=== PATIENT | female | born 1985 | race African-American/Black ===

== ENCOUNTER 2017-01-13 14:40 | Emergency (ER) | payer OTHER ==
[~2017-01-13] VITALS: Ht 165.1 cm; Wt 98.9 kg
[~2017-01-13 14:40] MED LIST: DOXY100T PO; HYDR-2758 PO; HYDR-971 PO; LISI1TAB3 PO; METR500T PO; NITR100C62 PO; OMEP20TA63 PO; ORPH100T PO
[2017-01-13] MEDS ORDERED: ASPIRIN CHEWABLE 81 MG TABLET. PO ONE (15:30)
[2017-01-13 15:36] LABS: BASO # 0.1 x10^3/uL (0.0-0.2); BASO % 1 % (0-3); EOS % 3 % (0-3); HEMATOCRIT 38.5 % (36.0-47.0); HEMOGLOBIN 12.8 g/dL (12.0-15.5); LYMPH # 2.7 x10^3/uL (1.0-4.8); LYMPH % 32 % (24-48); MEAN CORPUSCULAR HEMOGLOBIN 30 pg (25-35); MEAN CORPUSCULAR HGB CONC 33 g/dL (31-37); MEAN CORPUSCULAR VOLUME 91 fL (79-100); MONO % 4 % (0-9); NEUT % 61 % (31-73); PLATELET COUNT 293 x10^3/uL (140-400); RED BLOOD COUNT 4.24 x10^6/uL (3.50-5.40); RED CELL DISTRIBUTION WIDTH 14.6 % (11.5-14.5); WHITE BLOOD COUNT 8.6 x10^3/uL (4.0-11.0)
[2017-01-13 15:44] LABS: ALBUMIN 3.4 g/dL (3.4-5.0); ALBUMIN/GLOBULIN RATIO 0.8 (1.0-1.7); CALCIUM 8.9 mg/dL (8.5-10.1); CREATININE 0.7 mg/dL (0.6-1.0); GFR 116.6; TOTAL BILIRUBIN 0.3 mg/dL (0.2-1.0); TOTAL PROTEIN 7.7 g/dL (6.4-8.2)
[2017-01-13 15:52] LABS: POTASSIUM 2.8 mmol/L (3.5-5.1)
--- NOTE | 2017-01-13 15:53 | PHYS DOC ---
Past Medical History Past Medical History: Hypertension Additional Past Medical Histor: chronic left ankle pain, back pain, treated at pain center Past Surgical History: Tubal ligation, Other Additional Past Surgical Histo: orthopedic l ankle with hardware Alcohol Use: Occasionally Drug Use: Marijuana Adult General Chief Complaint Chief Complaint: CHEST PAIN HPI HPI Patient is a 31 year old F who presents with chest pain that started at 4 AM this morning and progressively gotten worse. Patient states the pain is central nonradiating. Patient has no previous MIs or stents. Patient does take medication for high blood pressure and does smoke. Patient denies any diabetes or any significant family history for heart disease. Patient denies any risk factors for PE/DVT. Patient denies any fevers. Patient denies any nausea/ vomiting/diarrhea. Patient states the chest pain does not increase or decrease with exertion. Pertinent exam findings: Heart was regular rhythm without murmurs Lungs are clear to auscultation bilaterally without crackles wheeze or rales ED course: Patient was seen and examined the cardiac workup was ordered 1625: By mouth potassium replacement was ordered 1726: She was reevaluated and her pain was better and she stated she needed to go right now and want to be discharged. Patient did not want to be admitted hospital. Pertinent results: EKG shows sinus tach rate of 103 no STEMI K 2.8 Troponin negative D-dimer negative HEART score =1 MDM: After reviewing the chart, CC/HPI/PMH, physical exam, [lab results], [ radiological results], I do not believe the patient having acute OK, PE, low suspicion for acute thoracic aortic dissection. I believe patient is stable for discharge. Recommended follow-up with PCP for further cardiac workup as an outpatient. Patient did not want to be admitted to the hospital for serial enzymes and EKGs. Additional verbal discharge instructions were provided to the patient and that if symptoms get worse or any new symptoms arise that are worrisome to the patient she is to return to the emergency room immediately Review of Systems Review of Systems GEN: Denies fevers, chills, sweats HEENT: Denies blurred vision, sore throat CV: chest pain RESP: Denies shortness of air, cough GI: Denies n/v/d NEURO: Denies confusion, dizziness MSK: Denies weakness, joint pain/swelling Current Medications Current Medications Current Medications Medications (Trade) Dose Ordered Sig/Polly Start Time Stop Time Status Last Admin Dose Admin Aspirin (Children'S Aspirin) 324 mg 1X ONCE 01/13/17 15:30 01/13/17 15:31 DC 01/13/17 16:09 324 MG Potassium Chloride (Klor-Con) 40 meq 1X ONCE 01/13/17 16:30 01/13/17 16:31 DC 01/13/17 16:30 40 MEQ Allergies Allergies Allergies Coded Allergies Type Severity Reaction Last Updated Verified No Known Drug Allergies 02/12/15 No Physical Exam Physical Exam GEN.: No apparent distress. Alert and oriented. HEENT: Head is normocephalic, atraumatic NECK: Supple. LUNGS: CTAB. HEART: RRR, S1, S2 present. Peripheral pulses intact ABDOMEN: Soft, nontender. Positive bowel sounds. EXTREMITIES: Without any cyanosis. NEUROLOGIC: Normal speech, normal tone PSYCHIATRIC: Normal affect, normal mood. SKIN: No ulcerations Current Patient Data Vital Signs Vital Signs Date Time Temp Pulse Resp B/P (MAP) Pulse Ox O2 Delivery O2 Flow Rate FiO2 01/13/17 17:34 81 18 147/76 (99) 97 Room Air 01/13/17 14:55 99.2 99.2 Lab Values Laboratory Tests Test 01/13/17 14:55 White Blood Count 8.6 x10^3/uL (4.0-11.0) Red Blood Count 4.24 x10^6/uL (3.50-5.40) Hemoglobin 12.8 g/dL (12.0-15.5) Hematocrit 38.5 % (36.0-47.0) Mean Corpuscular Volume 91 fL (79-100) Mean Corpuscular Hemoglobin 30 pg (25-35) Mean Corpuscular Hemoglobin Concent 33 g/dL (31-37) Red Cell Distribution Width 14.6 % (11.5-14.5) H Platelet Count 293 x10^3/uL (140-400) Neutrophils (%) (Auto) 61 % (31-73) Lymphocytes (%) (Auto) 32 % (24-48) Monocytes (%) (Auto) 4 % (0-9) Eosinophils (%) (Auto) 3 % (0-3) Basophils (%) (Auto) 1 % (0-3) Neutrophils # (Auto) 5.2 x10^3uL (1.8-7.7) Lymphocytes # (Auto) 2.7 x10^3/uL (1.0-4.8) Monocytes # (Auto) 0.3 x10^3/uL (0.0-1.1) Eosinophils # (Auto) 0.3 x10^3/uL (0.0-0.7) Basophils # (Auto) 0.1 x10^3/uL (0.0-0.2) D-Dimer (Page) 0.27 ug/mlFEU (0.00-0.50) Sodium Level 139 mmol/L (136-145) Potassium Level 2.8 mmol/L (3.5-5.1) *L Chloride Level 102 mmol/L (98-107) Carbon Dioxide Level 26 mmol/L (21-32) Anion Gap 11 (6-14) Blood Urea Nitrogen 4 mg/dL (7-20) L Creatinine 0.7 mg/dL (0.6-1.0) Estimated GFR (Cockcroft-Gault) 116.6 BUN/Creatinine Ratio 6 (6-20) Glucose Level 133 mg/dL (70-99) H Calcium Level 8.9 mg/dL (8.5-10.1) Total Bilirubin 0.3 mg/dL (0.2-1.0) Aspartate Amino Transferase (AST) 22 U/L (15-37) Alanine Aminotransferase (ALT) 19 U/L (14-59) Alkaline Phosphatase 102 U/L (46-116) Troponin I Quantitative < 0.017 ng/mL (0.000-0.055) Total Protein 7.7 g/dL (6.4-8.2) Albumin 3.4 g/dL (3.4-5.0) Albumin/Globulin Ratio 0.8 (1.0-1.7) L Laboratory Tests 01/13/17 14:55 Laboratory Tests 01/13/17 14:55 EKG EKG Sinus tach rate of 103 no STEMI [] Radiology/Procedures Radiology/Procedures Chest x-ray NAD [] Course & Med Decision Making Course & Med Decision Making Pertinent Labs and Imaging studies reviewed. (See chart for details) [] Dragon Disclaimer Dragon Disclaimer This electronic medical record was generated, in whole or in part, using a voice recognition dictation system. Departure Departure Impression: Primary Impression: Chest pain Additional Impression: Hypokalemia Disposition: HOME, SELF-CARE Condition: IMPROVED Referrals: ZOE TRINIDAD (PCP) Patient Instructions: Chest Pain (Nonspecific), Hypokalemia Additional Instructions: Please follow up with her family doctor for further cardiac workup and return if symptoms increase Scripts Potassium Chloride (POTASSIUM CHLORIDE) 20 Meq Tablet.er 20 MEQ PO DAILY for 5 Days, #5 TAB.SR Prov: MARIANA GREEN DO 01/13/17 Problem Qualifiers Primary Impression: Chest pain Chest pain type: unspecified Qualified Codes: R07.9 - Chest pain, unspecified MARIANA GREEN DO Jan 13, 2017 15:53
--- NOTE | 2017-01-13 15:55 | RAD ---
EXAM: Chest 2 views. HISTORY: Left chest pain. COMPARISON: 07/31/2016. FINDINGS: Frontal and lateral views of the chest are obtained. There are no confluent infiltrates. There is no pneumothorax or pleural effusion. The heart is not enlarged. IMPRESSION: 1. No confluent infiltrates.
[2017-01-13] MEDS ORDERED: POTASSIUM CHLORIDE 20 MEQ TABLET.ER. PO ONE (16:30)
[2017-01-13] MEDS ORDERED: POTA20TA82 PO (17:29)
[2017-01-13 17:34] VITALS: BP 147/76
--- NOTE | 2017-01-14 06:34 | EKG ---
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
== END 2017-01-13 17:35 | disposition home or self-care (01) ==
LOC: ER 14:40
DX: R07.89 Other chest pain (principal); E87.6 Hypokalemia; I10 Essential (primary) hypertension; G89.29 Other chronic pain; F12.10 Cannabis abuse, uncomplicated; F17.200 Nicotine dependence, unspecified, uncomplicated
CPT/HCPCS: 36415; 71020; 80053; 84484; 85027; 85379; 93005; 99285-25

== ENCOUNTER 2017-05-15 08:36 | Emergency (ER) | payer OTHER ==
[~2017-05-15] VITALS: Ht 165.1 cm; Wt 89.4 kg
[~2017-05-15 08:36] MED LIST changes: +POTA20TA82 PO
--- NOTE | 2017-05-15 08:40 | PHYS DOC ---
Past Medical History Past Medical History: Hypertension Additional Past Medical Histor: chronic left ankle pain, back pain, treated at pain center Past Surgical History: Tubal ligation, Other Additional Past Surgical Histo: orthopedic l ankle with hardware Alcohol Use: Occasionally Drug Use: Marijuana Adult General Chief Complaint Chief Complaint: ANKLE PROBLEM HPI HPI Patient is a 31 year old and [place] female who presents with chronic pain is worsened. She states her left heel her left hip and her back is hurting. She states her left heel and her left hip is her chronic pain has been worse since she's been packing and moving out of her current residence. She states her back pain is different is hurting lower in the center. She is concerned she might have a bladder infection as her daughter had the same symptoms. She denies any dysuria nausea fevers or chills. She denies any injury to her back. She did run out of her narcotic pain medicine last week she takes 10 mg of hydrocodone's every 8 hours in addition she takes cyclobenzaprine prior to going to bed and 800 mg of ibuprofen every 8 hours. She states her pain management doctor office is closed with a note on this is her moving and won't open up until June 11. She states she's been off of pain meds intermittently over the last several years. She states she's been back on hydrocodone's since October or November. Review of Systems Review of Systems Constitutional: Denies fever or chills [] Eyes: Denies change in visual acuity, redness, or eye pain [] HENT: Denies nasal congestion or sore throat [] Respiratory: Denies cough or shortness of breath [] Cardiovascular: No additional information not addressed in HPI [] GI: Denies abdominal pain, nausea, vomiting, bloody stools or diarrhea [] : Denies dysuria or hematuria [] Musculoskeletal: Positive for lumbar back pain, left hip pain and left ankle pain Integument: Denies rash or skin lesions [] Neurologic: Denies headache, focal weakness or sensory changes [] Endocrine: Denies polyuria or polydipsia [] Allergies Allergies Allergies Coded Allergies Type Severity Reaction Last Updated Verified No Known Drug Allergies 02/12/15 No Physical Exam Physical Exam Constitutional: Well developed, well nourished, no acute distress, non-toxic appearance. [] HENT: Normocephalic, atraumatic, bilateral external ears normal, oropharynx moist, no oral exudates, nose normal. [] Eyes: PERRLA, EOMI, conjunctiva normal, no discharge. [] Neck: Normal range of motion, no tenderness, supple, no stridor. [] Cardiovascular:Heart rate regular rhythm, no murmur [] Lungs & Thorax: Bilateral breath sounds clear to auscultation [] Abdomen: Bowel sounds normal, soft, no tenderness, no masses, no pulsatile masses. [] Skin: Warm, dry, no erythema, no rash. [] Back: No step-offs noted, tenderness noted diffusely across the L5 area, no CVA tenderness. [] Extremities: Tender palpation of the left hip, left ankle, no cyanosis, no clubbing, ROM intact, no edema. [] Neurologic: Alert and oriented X 3, normal motor function, normal sensory function, no focal deficits noted. [] Psychologic: Affect normal, judgement normal, mood normal. [] Current Patient Data Vital Signs Vital Signs Date Time Temp Pulse Resp B/P (MAP) Pulse Ox O2 Delivery O2 Flow Rate FiO2 05/15/17 08:58 98.4 86 20 100 Room Air 98.4 Lab Values Laboratory Tests Test 05/15/17 09:13 05/15/17 09:14 Urine Collection Type Void Urine Color Yellow Urine Clarity Clear Urine pH 6.0 Urine Specific [place] 1.015 Urine Protein Negative mg/dL (NEG-TRACE) Urine Glucose (UA) Negative mg/dL (NEG) Urine Ketones (Stick) Negative mg/dL (NEG) Urine Blood Negative (NEG) Urine Nitrite Negative (NEG) Urine Bilirubin Negative (NEG) Urine Urobilinogen Dipstick 0.2 mg/dL (0.2 mg/dL) Urine Leukocyte Esterase Negative (NEG) Urine RBC Occ /HPF (0-2) Urine WBC 1-4 /HPF (0-4) Urine Squamous Epithelial Cells Many /LPF Urine Bacteria Few /HPF (0-FEW) Urine Mucus Marked /LPF POC Urine HCG, Qualitative Hcg negative (Negative) EKG EKG [] Radiology/Procedures Radiology/Procedures [facility] [address] [place] [address] IMAGING REPORT Signed PATIENT: CARLOS MANUEL HAYES ACCOUNT: [id number] : 1985 LOCATION: ER AGE: 31 SEX: F EXAM STATUS: REG ER ORD. PHYSICIAN: ANYA KRAMER MD REASON: back pain PROCEDURE: LUMBAR SPINE 2-3V Lumbar spine, 3 views, 05/15/2017: History: Chronic low back pain The vertebral heights and intervertebral disc spaces are well-maintained. There is a slight lumbar scoliosis. There are mild scattered marginal spurs. No fracture or dislocation is identified. The paraspinous soft tissues are unremarkable. Surgical clips in the pelvis are compatible with previous tubal ligation surgery. IMPRESSION: 1. Mild scattered marginal spurring. 2. No acute lumbar spine abnormality is detected. DICTATED and SIGNED BY: AMNA BROWN MD DATE: 05/15/17946 CC: ANYA KRAMER MD; ZOE TRINIDAD ~ Impressions: Back pain Chronic left hip and ankle pain Course & Med Decision Making Course & Med Decision Making Pertinent Labs and Imaging studies reviewed. (See chart for details) Patient had a normal GFR in January 2017. 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 She is recommended to stop taking Motrin for start taking mobic. I called a prescription to her local pharmacy. UA does not show any signs of infection. Return precautions given. Savon Disclaimer Mani Disclaimer This electronic medical record was generated, in whole or in part, using a voice recognition dictation system. Departure Departure Impression: Primary Impression: Chronic back pain Disposition: 01 HOME, SELF-CARE Condition: STABLE Referrals: ZOE TRINIDAD (PCP) Patient Instructions: Back Pain, Adult Additional Instructions: The x-rays do not show any acute abnormality's. Your urine does not show any signs of infection. Your being discharged home. You should follow up with your pain medicine physician. Your being discharged home with Mobic. Please take it as instructed. Please stop taking ibuprofen as both of these medicines are very similar, and Mobic works better than ibuprofen. In order to obtain narcotic pain medicine, you will need to follow back up with your pain medicine specialist. If you have severe pain, weakness or numbness in your legs or other concerns please return back to emergency department. You should follow up with your primary care physician within the week. Scripts Meloxicam (MOBIC) 15 Mg Tablet 1 TAB PO DAILY, #30 TAB 1 Refill Prov: ANYA KRAMER MD 05/15/17 Problem Qualifiers Primary Impression: Chronic back pain Back pain location: low back pain Back pain laterality: midline Sciatica presence: without sciatica Qualified Codes: M54.5 - Low back pain; G89.29 - Other chronic pain ANYA KRAMER MD May 15, 2017 08:40
[2017-05-15 08:58] VITALS: BP 140/91
[2017-05-15 09:27] LABS: BILIRUBIN,URINE NEGATIVE (NEG); GLUCOSE,URINE NEGATIVE (NEG); NITRITE,URINE NEGATIVE (NEG); PROTEIN,URINE NEGATIVE (NEG-TRACE); UROBILINOGEN,URINE 0.2 mg/dL (0.2 mg/dL)
[2017-05-15 09:37] LABS: BACTERIA,URINE FEW /HPF (0-FEW); RBC,URINE OCC /HPF (0-2); SQUAMOUS EPITHELIAL CELL,UR MANY /LPF
[2017-05-15] MEDS ORDERED: MELO15TA6 PO (09:40)
--- NOTE | 2017-05-15 09:51 | RAD ---
Lumbar spine, 3 views, 05/15/2017: History: Chronic low back pain The vertebral heights and intervertebral disc spaces are well-maintained. There is a slight lumbar scoliosis. There are mild scattered marginal spurs. No fracture or dislocation is identified. The paraspinous soft tissues are unremarkable. Surgical clips in the pelvis are compatible with previous tubal ligation surgery. IMPRESSION: 1. Mild scattered marginal spurring. 2. No acute lumbar spine abnormality is detected.
== END 2017-05-15 10:06 | disposition home or self-care (01) ==
LOC: ER 08:36
DX: G89.29 Other chronic pain (principal); M54.5 Low back pain; M25.552 Pain in left hip; M79.672 Pain in left foot; I10 Essential (primary) hypertension; Z98.51 Tubal ligation status
CPT/HCPCS: 72100; 81001; 81025; 99285-25

== ENCOUNTER 2017-08-13 14:50 | Emergency (ER) | payer OTHER ==
[2017-08-13 15:10] LABS: URINE HCG POC HCG NEGATIVE (Negative)
[2017-08-13 15:25] LABS: ADD MAN DIFF? NO
[2017-08-13 15:27] LABS: BASO # 0.1 x10^3/uL (0.0-0.2); BASO % 1 % (0-3); EOS # 0.5 x10^3/uL (0.0-0.7); EOS % 4 % (0-3); HEMATOCRIT 42.4 % (36.0-47.0); HEMOGLOBIN 13.9 g/dL (12.0-15.5); LYMPH # 3.5 x10^3/uL (1.0-4.8); LYMPH % 31 % (24-48); MEAN CORPUSCULAR HEMOGLOBIN 30 pg (25-35); MEAN CORPUSCULAR HGB CONC 33 g/dL (31-37); MEAN CORPUSCULAR VOLUME 91 fL (79-100); MONO # 0.5 x10^3/uL (0.0-1.1); MONO % 5 % (0-9); NEUT # 6.5 x10^3uL (1.8-7.7); NEUT % 59 % (31-73); PLATELET COUNT 341 x10^3/uL (140-400); RED BLOOD COUNT 4.68 x10^6/uL (3.50-5.40); RED CELL DISTRIBUTION WIDTH 15.5 % (11.5-14.5); WHITE BLOOD COUNT 11.1 x10^3/uL (4.0-11.0)
== END 2017-08-13 16:10 | disposition home or self-care (01) ==
LOC: ER 16:10
DX: N92.1 Excessive and frequent menstruation with irregular cycle (principal); R10.2 Pelvic and perineal pain; I10 Essential (primary) hypertension; G89.29 Other chronic pain; F12.10 Cannabis abuse, uncomplicated; Z98.51 Tubal ligation status
CPT/HCPCS: 36415; 81025; 85025; 99283

== ENCOUNTER 2018-06-25 09:20 | Emergency (ER) | payer OTHER ==
[~2018-06-25] VITALS: Ht 165.1 cm; Wt 85.7 kg
[~2018-06-25 09:20] MED LIST changes: -HYDR-2758 PO; +HYDR-2761 PO; +HYDR-3164 PO; -HYDR-971 PO; +MELO15TA6 PO
[2018-06-25 09:37] LABS: BILIRUBIN,URINE NEGATIVE (NEG); CLARITY,URINE CLEAR; COLOR,URINE YELLOW; NITRITE,URINE NEGATIVE (NEG); PH,URINE 7.5; PROTEIN,URINE NEGATIVE (NEG-TRACE); UROBILINOGEN,URINE 0.2 mg/dL (0.2 mg/dL)
[2018-06-25] MEDS ORDERED: PROCHLORPERAZINE 10 MG/2 ML VIAL. IV ONE (09:45)
[2018-06-25] MEDS ORDERED: ONDANSETRON PF 4 MG/2 ML VIAL. IV ONE ×3 (09:45→12:45)
[2018-06-25] MEDS ORDERED: fentaNYL PF VIAL 100 MCG/2 ML VIAL IV ONE (09:45)
[2018-06-25] MEDS ORDERED: IV NORMAL SALINE 1000ML BAG 1,000 ML IV ONE ×2 (09:45→10:30)
[2018-06-25 09:46] LABS: BASO # 0.1 x10^3/uL (0.0-0.2); BASO % 1 % (0-3); EOS # 0.1 x10^3/uL (0.0-0.7); EOS % 1 % (0-3); HEMATOCRIT 42.8 % (36.0-47.0); HEMOGLOBIN 14.9 g/dL (12.0-15.5); LYMPH # 1.5 x10^3/uL (1.0-4.8); LYMPH % 23 % (24-48); MEAN CORPUSCULAR HEMOGLOBIN 32 pg (25-35); MEAN CORPUSCULAR HGB CONC 35 g/dL (31-37); MEAN CORPUSCULAR VOLUME 91 fL (79-100); MONO # 0.2 x10^3/uL (0.0-1.1); MONO % 4 % (0-9); NEUT # 4.8 x10^3uL (1.8-7.7); NEUT % 71 % (31-73); PLATELET COUNT 408 x10^3/uL (140-400); RED CELL DISTRIBUTION WIDTH 14.1 % (11.5-14.5); WHITE BLOOD COUNT 6.7 x10^3/uL (4.0-11.0)
--- NOTE | 2018-06-25 09:47 | PHYS DOC ---
Past Medical History Past Medical History: Hypertension Additional Past Medical Histor: chronic left ankle pain, back pain, treated at pain center Past Surgical History: Tubal ligation, Other Additional Past Surgical Histo: orthopedic l ankle with hardware Alcohol Use: Occasionally Drug Use: Marijuana Adult General Chief Complaint Chief Complaint: NAUSEA/VOMITING/DIARRHA HPI HPI Patient is a 32 year old female who presents with abdominal pain and generalized weakness. Patient states she has general body aches and has been feeling generally weak. Her symptoms started over the last 24 hours. She did have a cough also in some respiratory symptoms. No other ill family members. The patient has not had any recent travel. No shortness of breath. No chest pain. She does complain of some abdominal pain that is diffuse in nature. Denies urinary symptoms. Currently on her menstrual cycle. No pelvic pain. No abnormal vaginal discharge. She states she has been unable to hold down any food or fluids over the last 12 hours including water due to nausea and persistent emesis. She also endorses that she has had symptoms similar to this in the past and was diagnosed with GERD. Review of Systems Review of Systems Constitutional: Denies fever or chills Eyes: Denies change in visual acuity HENT: + cough Respiratory: Denies cough or shortness of breath Cardiovascular: No additional information not addressed in HPI GI: + abd pain with nausea and vomiting : Denies dysuria Musculoskeletal: Denies back pain Integument: Denies rash or skin lesions Neurologic: Denies headache All other systems were reviewed and found to be within normal limits, except as documented in this note. Current Medications Current Medications Current Medications Medications (Trade) Dose Ordered Sig/[facility] Start Time Stop Time Status Last Admin Dose Admin Fentanyl Citrate (Fentanyl 2ml Vial) 75 mcg 1X ONCE 06/25/18 09:45 06/25/18 09:46 DC 06/25/18 09:50 75 MCG Info (CONTRAST GIVEN -- Rx MONITORING) 1 each PRN DAILY PRN 06/25/18 10:15 06/27/18 10:14 Iohexol (Omnipaque 300 Mg/ml) 75 ml 1X ONCE 06/25/18 10:15 06/25/18 10:16 DC 06/25/18 10:36 75 ML Ondansetron HCl (Zofran) 4 mg 1X ONCE 06/25/18 11:15 06/25/18 11:16 DC 06/25/18 11:22 4 MG Prochlorperazine Edisylate (Compazine) 10 mg 1X ONCE 06/25/18 09:45 06/25/18 09:46 DC 06/25/18 09:49 10 MG Sodium Chloride 1,000 ml @ 1,000 mls/hr 1X ONCE 06/25/18 10:30 06/25/18 11:29 DC 06/25/18 11:22 1,000 MLS/HR Allergies Allergies Allergies Coded Allergies Type Severity Reaction Last Updated Verified No Known Drug Allergies 02/12/15 No Physical Exam Physical Exam Constitutional: Well developed, well nourished, no acute distress, non-toxic appearance HENT: Normocephalic, atraumatic, bilateral external ears normal, oropharynx moist Eyes: PERRLA, EOMI, conjunctiva normal Neck: Normal range of motion Cardiovascular:Heart rate regular rhythm, no murmur Lungs & Thorax: Bilateral breath sounds clear to auscultation Abdomen: Bowel sounds normal, soft, subjectively TTP but no guarding or rebound Skin: Warm, dry, no erythema, no rash Back: No tenderness Neurologic: Alert and oriented X 3 Psychologic: Affect normal Current Patient Data Vital Signs Vital Signs Date Time Temp Pulse Resp B/P (MAP) Pulse Ox O2 Delivery O2 Flow Rate FiO2 06/25/18 09:30 98.3 86 18 143/96 (112) 100 Room Air 98.3 Lab Values Laboratory Tests Test 06/25/18 09:25 06/25/18 09:30 06/25/18 09:36 06/25/18 09:54 Urine Collection Type Void Urine Color Yellow Urine Clarity Clear Urine pH 7.5 Urine Specific [place] 1.015 Urine Protein Negative mg/dL (NEG-TRACE) Urine Glucose (UA) Negative mg/dL (NEG) Urine Ketones (Stick) Negative mg/dL (NEG) Urine Blood Moderate (NEG) Urine Nitrite Negative (NEG) Urine Bilirubin Negative (NEG) Urine Urobilinogen Dipstick 0.2 mg/dL (0.2 mg/dL) Urine Leukocyte Esterase Negative (NEG) Urine RBC 20-40 /HPF (0-2) Urine WBC Rare /HPF (0-4) Urine Squamous Epithelial Cells Few /LPF Urine Bacteria Few /HPF (0-FEW) Urine Mucus Slight /LPF POC Urine HCG, Qualitative Hcg negative (Negative) White Blood Count 6.7 x10^3/uL (4.0-11.0) Red Blood Count 4.70 x10^6/uL (3.50-5.40) Hemoglobin 14.9 g/dL (12.0-15.5) Hematocrit 42.8 % (36.0-47.0) Mean Corpuscular Volume 91 fL (79-100) Mean Corpuscular Hemoglobin 32 pg (25-35) Mean Corpuscular Hemoglobin Concent 35 g/dL (31-37) Red Cell Distribution Width 14.1 % (11.5-14.5) Platelet Count 408 x10^3/uL (140-400) H Neutrophils (%) (Auto) 71 % (31-73) Lymphocytes (%) (Auto) 23 % (24-48) L Monocytes (%) (Auto) 4 % (0-9) Eosinophils (%) (Auto) 1 % (0-3) Basophils (%) (Auto) 1 % (0-3) Neutrophils # (Auto) 4.8 x10^3uL (1.8-7.7) Lymphocytes # (Auto) 1.5 x10^3/uL (1.0-4.8) Monocytes # (Auto) 0.2 x10^3/uL (0.0-1.1) Eosinophils # (Auto) 0.1 x10^3/uL (0.0-0.7) Basophils # (Auto) 0.1 x10^3/uL (0.0-0.2) Sodium Level 140 mmol/L (136-145) Potassium Level 4.0 mmol/L (3.5-5.1) Chloride Level 104 mmol/L (98-107) Carbon Dioxide Level 28 mmol/L (21-32) Anion Gap 8 (6-14) Blood Urea Nitrogen 5 mg/dL (7-20) L Creatinine 0.7 mg/dL (0.6-1.0) Estimated GFR (Cockcroft-Gault) 115.9 Glucose Level 168 mg/dL (70-99) H Calcium Level 8.7 mg/dL (8.5-10.1) Total Bilirubin 0.2 mg/dL (0.2-1.0) Direct Bilirubin 0.1 mg/dL (0.0-0.2) Aspartate Amino Transferase (AST) 17 U/L (15-37) Alanine Aminotransferase (ALT) 30 U/L (14-59) Alkaline Phosphatase 81 U/L (46-116) Total Protein 7.8 g/dL (6.4-8.2) Albumin 3.6 g/dL (3.4-5.0) Lipase 94 U/L (73-393) Influenza Type A Antigen Negative (NEGATIVE) Influenza Type B Antigen Negative (NEGATIVE) Laboratory Tests 06/25/18 09:36 Laboratory Tests 06/25/18 09:36 EKG EKG [] Radiology/Procedures Radiology/Procedures FINDINGS: Heart size is normal. Visualized lung bases are clear. Mild focal fatty infiltration in the liver adjacent to the falciform. Gallbladder, spleen, adrenal glands, pancreas and kidneys are unremarkable. Abdominal aorta normal in caliber. Major portal veins are patent. Small and large bowel loops are normal in caliber without obstruction. Appendix is normal in appearance. Mild submucosal fatty deposition of the proximal large bowel, likely sequelae of remote insult or body habitus. No abdominal free fluid. No pneumoperitoneum. Development of a small low-attenuation nodule in the left mid omentum measuring 0.7 cm, likely sequela of fat necrosis. There is a stable similar appearing nodule in the low peritoneum measuring 1.2 cm series 2/image 62. Uterus and adnexa unremarkable apart from bilateral tubal ligation clips. Urinary bladder unremarkable. No iliac or inguinal lymphadenopathy. There are no destructive osseous lesions. IMPRESSION: 1. No CT evidence of acute abdominal or pelvic process. 2. Stable mesenteric nodule with development of a left omental nodule which is similar appearing and low-attenuation, favored to represent sequelae of fat necrosis, though follow-up CT abdomen pelvis in 6 months is recommended to assess for stability. Course & Med Decision Making Course & Med Decision Making Pertinent Labs and Imaging studies reviewed. (See chart for details) Patient is evaluated immediately on arrival to her room. No acute distress but with many subjective complaints. Prominent complaint is n/v with abdominal pain. Standard abd pain workup ordered. medications for symptom relief. 10:40: Sleeping. Pain and nausea are improved. CT results pending 12:30: Patient currently feeling much improved. Her nausea is improved. She is tolerating fluids by mouth. She is requesting discharge home. No acute findings on her CT scan. She did have an incidental finding of some mesenteric fat nodule. This finding is discussed with the patient and she is advised to seek follow-up imaging per the guidelines. Advised to follow-up with her primary care doctor to obtain this. Patient is agreeable to the plan of care. She is provided Zofran to use at home as needed. Return precautions discussed and she will come back to the ER for any new or worsening symptoms.. 12:45: Update: patient does continue to c/o nausea although she tolerated PO challenge. She is requesting discharge b/c her ride is here. Advised to come back to ER as needed and use medications at home. Additional dose of zofran ordered prior to discharge home. Dragon Disclaimer Dragon Disclaimer This electronic medical record was generated, in whole or in part, using a voice recognition dictation system. Departure Departure Disposition: 01 HOME, SELF-CARE Condition: GOOD Referrals: ZOE TRINIDAD (PCP) Scripts Ondansetron (ONDANSETRON ODT) 4 Mg Tab.rapdis 1 TAB PO PRN Q6-8HRS PRN for NAUSEA, #16 TAB Prov: LIBERTAD REED DO 06/25/18 LIBERTAD REED DO Jun 25, 2018 09:47
[2018-06-25 09:48] LABS: RBC,URINE 20-40 /HPF (0-2); SQUAMOUS EPITHELIAL CELL,UR FEW /LPF
[2018-06-25 09:49] LABS: BACTERIA,URINE FEW /HPF (0-FEW); WBC,URINE RARE /HPF (0-4)
[2018-06-25 09:59] LABS: CALCIUM 8.7 mg/dL (8.5-10.1); CREATININE 0.7 mg/dL (0.6-1.0); GFR 115.9
[2018-06-25 10:12] LABS: ALBUMIN 3.6 g/dL (3.4-5.0); DIRECT BILIRUBIN 0.1 mg/dL (0.0-0.2); TOTAL BILIRUBIN 0.2 mg/dL (0.2-1.0); TOTAL PROTEIN 7.8 g/dL (6.4-8.2)
[2018-06-25] MEDS ORDERED: CONTRAST GIVEN. MC PRN (10:15)
[2018-06-25] MEDS ORDERED: IOHEXOL 300 MG/ML 100ML VIAL. IV ONE (10:15)
[2018-06-25 10:21] LABS: INFLUENZA A PATIENT NEGATIVE (NEGATIVE); INFLUENZA B PATIENT NEGATIVE (NEGATIVE)
--- NOTE | 2018-06-25 10:45 | RAD ---
CT abdomen and pelvis with contrast 06/25/2018 CLINICAL INDICATION: Abdominal pain for one day. COMPARISON: CT abdomen pelvis 02/16/2015 TECHNIQUE: Multiple CT images of the abdomen and pelvis were obtained following intravenous ministration of 75 mL Omnipaque 300. *One or more of the following individualized dose reduction techniques were utilized for this examination: 1. Automated exposure control. 2. Adjustment of the mA and/or kV according to patient size. 3. Use of iterative reconstruction technique. FINDINGS: Heart size is normal. Visualized lung bases are clear. Mild focal fatty infiltration in the liver adjacent to the falciform. Gallbladder, spleen, adrenal glands, pancreas and kidneys are unremarkable. Abdominal aorta normal in caliber. Major portal veins are patent. Small and large bowel loops are normal in caliber without obstruction. Appendix is normal in appearance. Mild submucosal fatty deposition of the proximal large bowel, likely sequelae of remote insult or body habitus. No abdominal free fluid. No pneumoperitoneum. Development of a small low-attenuation nodule in the left mid omentum measuring 0.7 cm, likely sequela of fat necrosis. There is a stable similar appearing nodule in the low peritoneum measuring 1.2 cm series 2/image 62. Uterus and adnexa unremarkable apart from bilateral tubal ligation clips. Urinary bladder unremarkable. No iliac or inguinal lymphadenopathy. There are no destructive osseous lesions. IMPRESSION: 1. No CT evidence of acute abdominal or pelvic process. 2. Stable mesenteric nodule with development of a left omental nodule which is similar appearing and low-attenuation, favored to represent sequelae of fat necrosis, though follow-up CT abdomen pelvis in 6 months is recommended to assess for stability. Electronically signed by: Jim Cardoso MD (06/25/2018 10:42 AM) [facility]
[2018-06-25 11:30] VITALS: BP 128/81
[2018-06-25] MEDS ORDERED: ONDA4TAB12 PO (12:20)
[2018-06-25] MEDS ORDERED: IOHEXOL 300 MG/ML 100ML VIAL. ONE (14:21)
== END 2018-06-25 12:48 | disposition home or self-care (01) ==
LOC: ER 09:20
DX: R10.84 Generalized abdominal pain (principal); R11.2 Nausea with vomiting, unspecified; R05 Cough; R53.1 Weakness; M79.10 Myalgia, unspecified site; G89.29 Other chronic pain; I10 Essential (primary) hypertension; K21.9 Gastro-esophageal reflux disease without esophagitis; Z98.51 Tubal ligation status
CPT/HCPCS: 36415; 74177; 80048; 80076; 81001; 81025; 83690; 85025; 87804; 96361; 96374; 96375; 96376; 99284; J0780; J2405; J3010; J7030; Q9967; 29125; 29130

== ENCOUNTER 2019-09-26 15:52 | Emergency (ER) | payer MEDICAID, OTHER ==
[~2019-09-26] VITALS: Ht 165.1 cm; Wt 100.0 kg
[~2019-09-26 15:52] MED LIST changes: +LISI1TAB23 PO; -LISI1TAB3 PO; +ONDA4TAB12 PO; +POTA20TA4 PO; -POTA20TA82 PO
[2019-09-26 16:00] VITALS: BP 134/77
[2019-09-26] MEDS ORDERED: KETOROLAC 15 MG/ML VIAL. IV STA (16:22)
[2019-09-26] MEDS ORDERED: DEXAMETHASONE 4 MG TABLET PO STA (16:22)
--- NOTE | 2019-09-26 16:26 | PHYS DOC ---
Past Medical History Past Medical History: Hypertension Additional Past Medical Histor: chronic left ankle pain, back pain, treated at pain center (EDGARDO PARSON APRN) Past Surgical History: Tubal ligation, Other Additional Past Surgical Histo: orthopedic l ankle with hardware (EDGARDO PARSON APRN) Smoking Status: Current Every Day Smoker Alcohol Use: Occasionally Drug Use: Marijuana (EDGARDO PARSON APRN) Adult General Chief Complaint Chief Complaint: [facility] HPI Patient is a 34 year old female who presents with flu-like symptoms that have been ongoing for 4 days. The patient reports that she's been having headache, fever, body aches, fatigue, lightheaded, cough, runny nose, nausea, vomiting, diarrhea, weakness, loss of appetite, and body aches. The patient states that her temperatures been 100.3F. The patient states that she went to try to donate plasma and they checked it will not let her done a plasma. Patient did not take her temperature at home. The patient states that she has not been treating this at home. Complete ROS were reviewed and found to be within normal limits, except as documented in the HPI (EDGARDO PARSON APRN) Review of Systems Review of Systems Constitutional: Denies fever or chills [] Eyes: Denies change in visual acuity, redness, or eye pain [] HENT: Denies nasal congestion or sore throat [] Respiratory: Denies cough or shortness of breath [] Cardiovascular: No additional information not addressed in HPI [] GI: Denies abdominal pain, nausea, vomiting, bloody stools or diarrhea [] : Denies dysuria or hematuria [] Musculoskeletal: Denies back pain or joint pain [] Integument: Denies rash or skin lesions [] Neurologic: Denies headache, focal weakness or sensory changes [] Endocrine: Denies polyuria or polydipsia [] All other systems were reviewed and found to be within normal limits, except as documented in this note. (EDGARDO PARSON APRN) Current Medications Current Medications Current Medications Medications (Trade) Dose Ordered Sig/Polly Start Time Stop Time Status Last Admin Dose Admin Acetaminophen (Tylenol) 1,000 mg 1X ONCE 09/26/19 16:30 09/26/19 16:31 DC Albuterol/ Ipratropium (Duoneb) 3 ml 1X ONCE 2/23/20 16:30 09/26/19 16:31 DC 09/26/19 16:37 3 ML Dexamethasone (Decadron) 10 mg 1X STAT 09/26/19 16:22 09/26/19 16:23 DC Ketorolac Tromethamine (Toradol 15mg Vial) 10 mg 1X STAT 09/26/19 16:22 09/26/19 16:23 DC Ondansetron HCl (Zofran) 4 mg 1X ONCE 09/26/19 16:30 09/26/19 16:31 DC Sodium Chloride 1,000 ml @ 1,000 mls/hr 1X ONCE 09/26/19 16:30 09/26/19 17:29 DC (EYAL WEISS MD) Allergies Allergies Allergies Coded Allergies Type Severity Reaction Last Updated Verified No Known Drug Allergies 02/12/15 No (EYAL WEISS MD) Physical Exam Physical Exam Constitutional: Well developed, well nourished, no acute distress, non-toxic appearance. [] HENT: Normocephalic, atraumatic, bilateral external ears normal, bilateral tympanic membranes are pearly calhoun, oropharynx moist, no oral exudates, nose turbinates are inflamed. Eyes: PERRLA, EOMI, conjunctiva normal, no discharge. [] Neck: Normal range of motion, no tenderness, supple, no stridor. [] Cardiovascular:Heart rate regular rhythm, no murmur [] Lungs & Thorax: Bilateral breath sounds have scattered wheezing. Abdomen: Bowel sounds normal, soft, no tenderness, no masses, no pulsatile masses. [] Skin: Warm, dry, no erythema, no rash. [] Neurologic: Alert and oriented X 3, normal motor function, normal sensory function, no focal deficits noted. [] Psychologic: Affect normal, judgement normal, mood normal. [] (EDGARDO PARSON APRN) Current Patient Data Vital Signs Vital Signs Date Time Temp Pulse Resp B/P (MAP) Pulse Ox O2 Delivery O2 Flow Rate FiO2 09/26/19 16:37 Room Air 09/26/19 16:00 98.8 96 16 134/77 (96) 96 98.8 (EYAL WEISS MD) Lab Values Laboratory Tests Test 09/26/19 16:00 09/26/19 16:14 09/26/19 16:49 Urine Collection Type Unknown Urine Color Yellow Urine Clarity Clear Urine pH 6.0 Urine Specific [place] 1.010 Urine Protein Negative mg/dL (NEG-TRACE) Urine Glucose (UA) Negative mg/dL (NEG) Urine Ketones (Stick) Negative mg/dL (NEG) Urine Blood Negative (NEG) Urine Nitrite Negative (NEG) Urine Bilirubin Negative (NEG) Urine Urobilinogen Dipstick 0.2 mg/dL (0.2 mg/dL) Urine Leukocyte Esterase Negative (NEG) Urine RBC 0 /HPF (0-2) Urine WBC 0 /HPF (0-4) Urine Squamous Epithelial Cells Few /LPF Urine Bacteria Few /HPF (0-FEW) POC Urine HCG, Qualitative Hcg negative (Negative) White Blood Count 7.3 x10^3/uL (4.0-11.0) Red Blood Count 4.54 x10^6/uL (3.50-5.40) Hemoglobin 14.4 g/dL (12.0-15.5) Hematocrit 41.4 % (36.0-47.0) Mean Corpuscular Volume 91 fL (79-100) Mean Corpuscular Hemoglobin 32 pg (25-35) Mean Corpuscular Hemoglobin Concent 35 g/dL (31-37) Red Cell Distribution Width 14.0 % (11.5-14.5) Platelet Count 308 x10^3/uL (140-400) Neutrophils (%) (Auto) 48 % (31-73) Lymphocytes (%) (Auto) 41 % (24-48) Monocytes (%) (Auto) 6 % (0-9) Eosinophils (%) (Auto) 4 % (0-3) H Basophils (%) (Auto) 1 % (0-3) Neutrophils # (Auto) 3.5 x10^3/uL (1.8-7.7) Lymphocytes # (Auto) 3.0 x10^3/uL (1.0-4.8) Monocytes # (Auto) 0.5 x10^3/uL (0.0-1.1) Eosinophils # (Auto) 0.3 x10^3/uL (0.0-0.7) Basophils # (Auto) 0.1 x10^3/uL (0.0-0.2) Sodium Level 142 mmol/L (136-145) Potassium Level 3.8 mmol/L (3.5-5.1) Chloride Level 107 mmol/L (98-107) Carbon Dioxide Level 24 mmol/L (21-32) Anion Gap 11 (6-14) Blood Urea Nitrogen 6 mg/dL (7-20) L Creatinine 0.7 mg/dL (0.6-1.0) Estimated GFR (Cockcroft-Gault) 114.6 BUN/Creatinine Ratio 9 (6-20) Glucose Level 108 mg/dL (70-99) H Calcium Level 8.7 mg/dL (8.5-10.1) Total Bilirubin 0.2 mg/dL (0.2-1.0) Aspartate Amino Transferase (AST) 19 U/L (15-37) Alanine Aminotransferase (ALT) 23 U/L (14-59) Alkaline Phosphatase 88 U/L (46-116) Total Protein 6.7 g/dL (6.4-8.2) Albumin 3.4 g/dL (3.4-5.0) Albumin/Globulin Ratio 1.0 (1.0-1.7) Laboratory Tests 09/26/19 16:49 Laboratory Tests 09/26/19 16:49 (EYAL WEISS MD) EKG EKG [] (EDGARDO PARSON APRN) Radiology/Procedures Radiology/Procedures [] (EDGARDO PARSON APRN) Course & Med Decision Making Course & Med Decision Making Pertinent Labs and Imaging studies reviewed. (See chart for details) Will get labs, flu, chest x-ray, UA, and give supportive care. Patient told nursing that she wants to leave. Patient was advised of risks of leaving including and signed against medical advice paperwork. (EDGARDO PARSON APRN) Course & Med Decision Making Staff Physician Addendum: I was working in the ER during the course of this patient's visit. I was available for consultation as needed, but I was not directly involved in the care of this patient. i was not made aware of the ama plan during er course (EYAL WEISS MD) Dragon Disclaimer Dragon Disclaimer This electronic medical record was generated, in whole or in part, using a voice recognition dictation system. (EDGARDO PARSON APRN) Departure Departure Impression: Primary Impression: Left against medical advice Disposition: 01 HOME, SELF-CARE Condition: STABLE Referrals: ZOE TRINIDAD (PCP) EDGARDO PARSON APRN Sep 26, 2019 16:26 EYAL WEISS MD Sep 27, 2019 07:20
[2019-09-26 16:27] LABS: BILIRUBIN,URINE NEGATIVE (NEG); CLARITY,URINE CLEAR; COLOR,URINE YELLOW; NITRITE,URINE NEGATIVE (NEG); PROTEIN,URINE NEGATIVE (NEG-TRACE); UROBILINOGEN,URINE 0.2 mg/dL (0.2 mg/dL)
[2019-09-26] MEDS ORDERED: IPRATRPIUM/ALBUTEROL 0.5/2.5MG 3 ML NEBU. NEB ONE (16:30)
[2019-09-26] MEDS ORDERED: ONDANSETRON PF 4 MG/2 ML VIAL. IV ONE (16:30)
[2019-09-26] MEDS ORDERED: IV NORMAL SALINE 1000ML BAG 1,000 ML IV ONE (16:30)
[2019-09-26] MEDS ORDERED: ACETAMINOPHEN 500 MG TABLET PO ONE (16:30)
[2019-09-26 16:37] LABS: BACTERIA,URINE FEW /HPF (0-FEW); RBC,URINE 0 /HPF (0-2); SQUAMOUS EPITHELIAL CELL,UR FEW /LPF; WBC,URINE 0 /HPF (0-4)
[2019-09-26 16:59] LABS: BASO # 0.1 x10^3/uL (0.0-0.2); BASO % 1 % (0-3); EOS # 0.3 x10^3/uL (0.0-0.7); EOS % 4 % (0-3); HEMATOCRIT 41.4 % (36.0-47.0); HEMOGLOBIN 14.4 g/dL (12.0-15.5); LYMPH % 41 % (24-48); MEAN CORPUSCULAR HEMOGLOBIN 32 pg (25-35); MEAN CORPUSCULAR HGB CONC 35 g/dL (31-37); MEAN CORPUSCULAR VOLUME 91 fL (79-100); MONO # 0.5 x10^3/uL (0.0-1.1); MONO % 6 % (0-9); NEUT # 3.5 x10^3/uL (1.8-7.7); NEUT % 48 % (31-73); PLATELET COUNT 308 x10^3/uL (140-400); RED BLOOD COUNT 4.54 x10^6/uL (3.50-5.40); WHITE BLOOD COUNT 7.3 x10^3/uL (4.0-11.0)
[2019-09-26 17:04] LABS: CALCIUM 8.7 mg/dL (8.5-10.1); CREATININE 0.7 mg/dL (0.6-1.0); GFR 114.6; POTASSIUM 3.8 mmol/L (3.5-5.1)
[2019-09-26 17:10] LABS: ALBUMIN 3.4 g/dL (3.4-5.0); TOTAL BILIRUBIN 0.2 mg/dL (0.2-1.0); TOTAL PROTEIN 6.7 g/dL (6.4-8.2)
== END 2019-09-26 17:00 | disposition home or self-care (01) ==
LOC: ER 15:52
DX: R51 Headache (principal); R50.9 Fever, unspecified; R11.2 Nausea with vomiting, unspecified; R42 Dizziness and giddiness; R53.83 Other fatigue; M79.10 Myalgia, unspecified site; R05 Cough; R09.89 Other specified symptoms and signs involving the circulatory and respiratory systems; R19.7 Diarrhea, unspecified; R53.1 Weakness; R63.0 Anorexia; G89.29 Other chronic pain; I10 Essential (primary) hypertension; F17.200 Nicotine dependence, unspecified, uncomplicated
CPT/HCPCS: 36415; 80053; 81001; 81025; 85025; 94640; 99284; J7620

== ENCOUNTER 2019-09-27 13:09 | Emergency (ER) | payer MEDICAID ==
[~2019-09-27] VITALS: Ht 165.1 cm; Wt 96.5 kg
[2019-09-27 15:00] VITALS: BP 164/84
--- NOTE | 2019-09-27 15:20 | PHYS DOC ---
Past Medical History Past Medical History: Hypertension Additional Past Medical Histor: chronic left ankle pain, back pain, treated at pain center (CLEMENTINA NICOLE APRN) Past Surgical History: Tubal ligation, Other Additional Past Surgical Histo: orthopedic l ankle with hardware (CLEMENTINA NICOLE APRN) Smoking Status: Current Every Day Smoker Additional Information: 08/05 ppd Alcohol Use: Occasionally Drug Use: Marijuana (CLEMENTINA NICOLE APRN) Adult General Chief Complaint Chief Complaint: DIZZY/LIGHT HEADED HPI HPI Patient is a 34 year old female who presents to the ED today with multiple complaints including dizziness, body aches, fatigue, generalized mild headaches symptoms begun 5 days. Patient was seen in the ED yesterday, was worked up, apparently she refused to stay waiting for her results stating she needs go home and watch a TV show. She returns today requesting her results and reason she has these symptoms. Patient reports donating plasma. Last donation one week ago. (CLEMENTINA NICOLE APRN) Review of Systems Review of Systems Constitutional: Reports fatigue. Denies fever or chills [] Eyes: Denies change in visual acuity, redness, or eye pain [] HENT: Denies nasal congestion or sore throat [] Respiratory: Denies cough or shortness of breath [] Cardiovascular: No additional information not addressed in HPI [] GI: Denies abdominal pain, nausea, vomiting, bloody stools or diarrhea [] : Denies dysuria or hematuria [] Musculoskeletal: Denies back pain or joint pain [] Integument: Denies rash or skin lesions [] Neurologic: Reports dizziness, headache. Denies focal weakness or sensory changes [] All other systems were reviewed and found to be within normal limits, except as documented in this note. (CLEMENTINA NICOLE APRN) Allergies Allergies Allergies Coded Allergies Type Severity Reaction Last Updated Verified No Known Drug Allergies 02/12/15 No (EYAL WEISS MD) Physical Exam Physical Exam Constitutional: Well developed, well nourished, no acute distress, non-toxic appearance. [] HENT: Normocephalic, atraumatic, bilateral external ears normal, oropharynx lora st, no oral exudates, nose normal. [] Eyes: PERRLA, EOMI, conjunctiva normal, no discharge. [] Neck: Normal range of motion, no tenderness, supple, no stridor. [] Cardiovascular:Heart rate regular rhythm, no murmur [] Lungs & Thorax: Bilateral breath sounds clear to auscultation [] Abdomen: Bowel sounds normal, soft, no tenderness, no masses, no pulsatile masses. [] Skin: Warm, dry, no erythema, no rash. [] Back: No tenderness, no CVA tenderness. [] Extremities: No tenderness, no cyanosis, no clubbing, ROM intact, no edema. [] Neurologic: Alert and oriented X 3, normal motor function, normal sensory function, no focal deficits noted. Cranial nerves II through XII intact Psychologic: Affect normal, judgement normal, mood normal. [] (CLEMENTINA NICOLE APRN) Current Patient Data Vital Signs Vital Signs Date Time Temp Pulse Resp B/P (MAP) Pulse Ox O2 Delivery O2 Flow Rate FiO2 09/27/19 15:00 99.1 115 16 164/84 (110) 98 Room Air 99.1 (EYAL WEISS MD) EKG EKG [] (CLEMENTINA NICOLE APRN) Radiology/Procedures Radiology/Procedures [] (CLEMENTINA NICOLE APRN) Course & Med Decision Making Course & Med Decision Making Pertinent Labs and Imaging studies reviewed. (See chart for details) This is a 34-year-old female patient who presents to the ED today with multiple complaints including dizziness, fatigue, headaches, symptoms for 5 days. Patient was seen in the ED yesterday, was worked up, she apparently refused to wait for her results because the TV in her room did not have a TV show she wanted to watch. She presents today requesting her results and reasons for her symptoms. Looking at her workup yesterday everything was negative including a CBC, CMP, UA. Today's blood pressure was noted in the 160s over 80s. Patient is already on high blood pressure medicines. Patient was discharged to home. Advised to consider not donating plasma for 1 month. Follow-up with her PCP in the next 1 week. (CLEMENTINA NICOLE APRN) Course & Med Decision Making Staff Physician Addendum: I was working in the ER during the course of this patient's visit. I was available for consultation as needed, but I was not directly involved in the care of this patient. (EYAL WEISS MD) Dragon Disclaimer Dragon Disclaimer This electronic medical record was generated, in whole or in part, using a voice recognition dictation system. (CLEMENTINA NICOLE APRN) Departure Departure Impression: Primary Impression: Dizziness Disposition: 01 HOME, SELF-CARE Condition: STABLE Referrals: ZOE TRINIDAD (PCP) follow up next week Patient Instructions: Dizziness Additional Instructions: Please follow up with your doctor next week Consider taking a break from plasma donations for one month CLEMENTNIA NICOLE APRN Sep 27, 2019 15:20 EYAL WEISS MD Sep 27, 2019 17:44
== END 2019-09-27 15:45 | disposition home or self-care (01) ==
LOC: ER 13:09
DX: R42 Dizziness and giddiness (principal); R51 Headache; M79.10 Myalgia, unspecified site; R53.83 Other fatigue; I10 Essential (primary) hypertension; G89.29 Other chronic pain; F17.200 Nicotine dependence, unspecified, uncomplicated
CPT/HCPCS: 99281

== ENCOUNTER 2020-01-28 05:08 | Emergency (ER) | payer MEDICAID ==
[~2020-01-28] VITALS: Ht 165.1 cm; Wt 94.0 kg
[2020-01-28 06:38] LABS: BILIRUBIN,URINE NEGATIVE (NEG); CLARITY,URINE CLEAR; COLOR,URINE YELLOW; NITRITE,URINE NEGATIVE (NEG); PROTEIN,URINE NEGATIVE (NEG-TRACE)
[2020-01-28] MEDS ORDERED: FAMOTIDINE 20 MG/2 ML VIAL IVP ONE (06:45)
[2020-01-28] MEDS ORDERED: LIDO:MAALOX 1:1 20 ML SINGLE DOSE. SWSW ONE (06:45)
[2020-01-28] MEDS ORDERED: ONDANSETRON PF 4 MG/2 ML VIAL. IVP ONE (06:45)
--- NOTE | 2020-01-28 06:45 | PHYS DOC ---
Past Medical History Past Medical History: Hypertension Additional Past Medical Histor: chronic left ankle pain, back pain, treated at pain center Past Surgical History: Tubal ligation, Other Additional Past Surgical Histo: orthopedic l ankle with hardware Smoking Status: Current Every Day Smoker Alcohol Use: Occasionally Drug Use: Marijuana General Adult EDM: Chief Complaint: ABDOMINAL PAIN HPI: HPI: Patient is a 34 year old female who presented to ER today for evaluation of epigastric abdominal pain associate with nausea vomiting for a week. Patient denies any cough or fever, no chest pain, no diarrhea. Patient said she had this problem in the past, she was seen in the emergency department but never been seen by a GI doctor. Patient denies any history of diabetes, no history of heart disease. Patient said the pain is more severe at night that she could not sleep due to the pain. Review of Systems: Review of Systems: Constitutional: Denies fever or chills. [] Eyes: Denies change in visual acuity. [] HENT: Denies nasal congestion or sore throat. [] Respiratory: Denies cough or shortness of breath. [] Cardiovascular: Denies chest pain or edema. [] GI: Positive for abdominal pain, nausea and vomiting., No diarrhea : Denies dysuria. [] Musculoskeletal: Denies back pain or joint pain. [] Integument: Denies rash. [] Neurologic: Denies headache, focal weakness or sensory changes. [] Endocrine: Denies polyuria or polydipsia. [] Lymphatic: Denies swollen glands. [] Psychiatric: Denies depression or anxiety. [] Heart Score: Risk Factors: Risk Factors: DM, Current or recent (<one month) smoker, HTN, HLP, family history of CAD, obesity. Risk Scores: Score 0 - 3: 2.5% MACE over next 6 weeks - Discharge Home Score 4 - 6: 20.3% MACE over next 6 weeks - Admit for Clinical Observation Score 7 - 10: 72.7% MACE over next 6 weeks - Early Invasive Strategies Current Medications: Current Medications Medications (Trade) Dose Ordered Sig/Polly Start Time Stop Time Status Last Admin Dose Admin Famotidine (Pepcid Vial) 20 mg 1X ONCE 01/28/20 06:45 01/28/20 06:46 Multi-Ingredient Mouthwash/Gargle (Gi Cocktail) 20 ml 1X ONCE 01/28/20 06:45 01/28/20 06:46 Ondansetron HCl (Zofran) 8 mg 1X ONCE 01/28/20 06:45 01/28/20 06:46 Allergies: Allergies: Allergies Coded Allergies Type Severity Reaction Last Updated Verified No Known Drug Allergies 02/12/15 No Physical Exam: PE: Constitutional: Well developed, well nourished, no acute distress, non-toxic appearance. [] HENT: Normocephalic, atraumatic, bilateral external ears normal, oropharynx moist, no oral exudates, nose normal. [] Eyes: PERRLA, EOMI, conjunctiva normal, no discharge. [] Neck: Normal range of motion, no tenderness, supple, no stridor. [] Cardiovascular:Heart rate regular rhythm, no murmur [] Lungs & Thorax: Bilateral breath sounds clear to auscultation [] Abdomen: Bowel sounds normal, soft, there is tenderness to palpation in epigastric area, no masses, no pulsatile masses. No rebound, no guarding Skin: Warm, dry, no erythema, no rash. [] Back: No tenderness, no CVA tenderness. [] Extremities: No tenderness, no cyanosis, no clubbing, ROM intact, no edema. [] Neurologic: Alert and oriented X 3, normal motor function, normal sensory function, no focal deficits noted. [] Psychologic: Affect normal, judgement normal, mood normal. [] Current Patient Data: Labs: Laboratory Tests Test 01/28/20 05:32 POC Urine HCG, Qualitative Hcg negative (Negative) EKG: EKG: [] Radiology/Procedures: Radiology/Procedures: [][facility] [address] [place], [place] [id number] IMAGING REPORT Signed PATIENT: CARLOS MANUEL HAYES ACCOUNT: [id number] : 1985 LOCATION: ER AGE: 34 SEX: F EXAM STATUS: REG ER ORD. PHYSICIAN: HYUN CORNEJO DO REASON: abdominal pain, nausea, vomiting PROCEDURE: CT ABD PELV W/ IV CONTRST ONLY CT scan of the abdomen and pelvis with contrast 01/28/2020 CLINICAL HISTORY: Abdominal pain and vomiting. TECHNIQUE: After the intravenous administration of 75 cc of Omnipaque 300, 5 mm axial sections were obtained through the abdomen and pelvis. One or more of the following individualized dose reduction techniques were utilized for this study: 1. Automated exposure control. 2. Adjustment of the mA and/or kV according to patient size. 3. Use of iterative reconstruction technique. Findings: Comparison study is dated 06/25/2018. Images through the lung bases are within normal limits. The liver, spleen, pancreas, adrenal glands and kidneys are within normal limits. Atherosclerotic calcification of the abdominal aorta is seen. The abdominal aorta tapers normally. The gallbladder is well-distended. No free fluid or free air is seen within the abdomen. There is no evidence of bowel obstruction. The appendix is well-visualized and is within normal limits. Images through the pelvis demonstrate the urinary bladder distended with urine. Tubal ligation bands are seen bilaterally. No adnexal mass is seen. No free fluid is noted. The small mesenteric nodule seen on the previous examination within the mesentery of the lower abdomen/pelvis appears to have resolved. Minimal S-shaped curvature of the thoracolumbar spine is seen. IMPRESSION: No acute abnormality is seen. Electronically signed by: Patrice Beasley MD (01/28/2020 9:06 AM) [id number] DICTATED and SIGNED BY: PATRICE BEASLEY MD DATE: 01/28/20905 Course & Med Decision Making: Course & Med Decision Making Pertinent Labs and Imaging studies reviewed. (See chart for details) Patient is a 34-year-old female who was evaluated in the ER due to epigastric abdominal pain associate with nausea and vomiting for a week. Her symptom is consistent with gastritis, will discharge home with Carafate and PPI. Patient will need to follow-up with GI doctor for outpatient evaluation. Patient is amenable to plan of care Dragon Disclaimer: Dragon Disclaimer: This electronic medical record was generated, in whole or in part, using a voice recognition dictation system. Departure Departure Impression: Primary Impression: Abdominal pain Qualified Codes: R10.13 - Epigastric pain Additional Impression: Gastritis Disposition: 01 HOME, SELF-CARE Condition: IMPROVED Referrals: ZOE TRINIDAD (PCP) please follow up with your family doctor for follow up next week. you will need a referral for GI doctor evaluation. Patient Instructions: Abdominal Pain, Gastritis, Adult Scripts Metoclopramide Hcl (REGLAN) 10 Mg Tablet 1 TAB PO QID PRN for NAUSEA for 10 Days, #30 TAB 0 Refills before food and bedtime Prov: HYUN CORNEJO DO 01/28/20 Omeprazole Magnesium (PRILOSEC OTC) 20 Mg Tablet.dr 1 TAB PO DAILY for 30 Days, #30 TAB 0 Refills Prov: HYUN CORNEJO DO 01/28/20 Sucralfate (CARAFATE) 1 Gm Tablet 1 TAB PO QID for 21 Days, #84 TAB 0 Refills Prov: HYUN CORNEJO DO 01/28/20 Justicifation of Admission Dx: Justifications for Admission: Justification of Admission Dx: N/A HYUN CORNEJO DO Jan 28, 2020 06:45
[2020-01-28 06:48] LABS: BACTERIA,URINE FEW /HPF (0-FEW); HYALINE CASTS, URINE FEW /HPF; RBC,URINE RARE /HPF (0-2); SQUAMOUS EPITHELIAL CELL,UR MOD /LPF
[2020-01-28 07:32] LABS: BASO # 0.1 x10^3/uL (0.0-0.2); BASO % 1 % (0-3); EOS # 0.1 x10^3/uL (0.0-0.7); EOS % 1 % (0-3); HEMATOCRIT 44.1 % (36.0-47.0); HEMOGLOBIN 14.9 g/dL (12.0-15.5); LYMPH % 18 % (24-48); MEAN CORPUSCULAR HEMOGLOBIN 31 pg (25-35); MEAN CORPUSCULAR HGB CONC 34 g/dL (31-37); MEAN CORPUSCULAR VOLUME 93 fL (79-100); MONO # 0.4 x10^3/uL (0.0-1.1); MONO % 4 % (0-9); NEUT # 8.6 x10^3/uL (1.8-7.7); NEUT % 76 % (31-73); PLATELET COUNT 392 x10^3/uL (140-400); RED BLOOD COUNT 4.77 x10^6/uL (3.50-5.40); RED CELL DISTRIBUTION WIDTH 16.1 % (11.5-14.5); WHITE BLOOD COUNT 11.3 x10^3/uL (4.0-11.0)
[2020-01-28] MEDS ORDERED: METOCLOPRAMIDE HCL 10 MG/2 ML VIAL. IVP ONE (08:00)
[2020-01-28 08:08] LABS: ALBUMIN/GLOBULIN RATIO 0.8 (1.0-1.7); ALK PHOS 95 U/L (46-116); ALT (SGPT) 18 U/L (14-59); ANION GAP 12 (6-14); AST (SGOT) 17 U/L (15-37); BLOOD UREA NITROGEN 4 mg/dL (7-20); BUN/CREATININE RATIO 7 (6-20); CALCIUM 8.1 mg/dL (8.5-10.1); CARBON DIOXIDE 26 mmol/L (21-32); CHLORIDE 102 mmol/L (98-107); CREATININE 0.6 mg/dL (0.6-1.0); GFR 136.9; GLUCOSE 138 mg/dL (70-99); LIPASE 68 U/L (73-393); SODIUM 140 mmol/L (136-145); TOTAL PROTEIN 6.6 g/dL (6.4-8.2)
[2020-01-28 08:09] LABS: TOTAL BILIRUBIN < 0.1 mg/dL (0.2-1.0)
[2020-01-28 08:10] LABS: PROTHROMBIN TIME PATIENT 12.8 SEC (11.7-14.0)
[2020-01-28] MEDS ORDERED: IOHEXOL 300 MG/ML 100ML VIAL. IV ONE (08:30)
[2020-01-28] MEDS ORDERED: CONTRAST GIVEN. MC PRN (08:45)
--- NOTE | 2020-01-28 09:09 | RAD ---
CT scan of the abdomen and pelvis with contrast 01/28/2020 CLINICAL HISTORY: Abdominal pain and vomiting. TECHNIQUE: After the intravenous administration of 75 cc of Omnipaque 300, 5 mm axial sections were obtained through the abdomen and pelvis. One or more of the following individualized dose reduction techniques were utilized for this study: 1. Automated exposure control. 2. Adjustment of the mA and/or kV according to patient size. 3. Use of iterative reconstruction technique. Findings: Comparison study is dated 06/25/2018. Images through the lung bases are within normal limits. The liver, spleen, pancreas, adrenal glands and kidneys are within normal limits. Atherosclerotic calcification of the abdominal aorta is seen. The abdominal aorta tapers normally. The gallbladder is well-distended. No free fluid or free air is seen within the abdomen. There is no evidence of bowel obstruction. The appendix is well-visualized and is within normal limits. Images through the pelvis demonstrate the urinary bladder distended with urine. Tubal ligation bands are seen bilaterally. No adnexal mass is seen. No free fluid is noted. The small mesenteric nodule seen on the previous examination within the mesentery of the lower abdomen/pelvis appears to have resolved. Minimal S-shaped curvature of the thoracolumbar spine is seen. IMPRESSION: No acute abnormality is seen. Electronically signed by: Patrice Beasley MD (01/28/2020 9:06 AM) [place] [id number]
[2020-01-28 09:32] VITALS: BP 167/105
[2020-01-28] MEDS ORDERED: SUCR1TAB35 PO (09:51)
[2020-01-28] MEDS ORDERED: METO10TA81 PO (09:51)
[2020-01-28] MEDS ORDERED: OMEP20TA63 PO (09:51)
[2020-01-28] MEDS ORDERED: POTASSIUM CHLORIDE 20 MEQ TABLET.ER. PO ONE (10:00)
== END 2020-01-28 10:05 | disposition home or self-care (01) ==
LOC: ER 05:08
DX: K29.70 Gastritis, unspecified, without bleeding (principal); R10.13 Epigastric pain; R11.2 Nausea with vomiting, unspecified; I10 Essential (primary) hypertension; G89.29 Other chronic pain; F17.200 Nicotine dependence, unspecified, uncomplicated; F12.90 Cannabis use, unspecified, uncomplicated; Z98.51 Tubal ligation status; Z98.890 Other specified postprocedural states; Z79.899 Other long term (current) drug therapy
CPT/HCPCS: 36415; 74177; 80053; 81001; 81025; 83690; 85025; 85610; 85730; 96374; 96375; 99285; J2405; J2765; J3490; Q9967

== ENCOUNTER 2020-04-14 14:43 | Emergency (ER) | payer OTHER, MEDICAID ==
[~2020-04-14] VITALS: Ht 165.1 cm; Wt 93.8 kg
[~2020-04-14 14:43] MED LIST changes: +METO10TA81 PO; +SUCR1TAB35 PO
[2020-04-14 15:20] VITALS: BP 150/83
[2020-04-14] MEDS ORDERED: predniSONE 10 MG TABLET PO ONE (16:15)
[2020-04-14] MEDS ORDERED: ORPHENADRINE CITRATE 60 MG/2 ML VIAL. IM ONE (16:15)
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
[2020-04-14] MEDS ORDERED: CYCL10TA2 PO (17:24)
[2020-04-14] MEDS ORDERED: NAPR-514 PO (17:24)
[2020-04-14] MEDS ORDERED: PRED50TA PO (17:24)
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
== END 2020-04-14 17:11 | disposition home or self-care (01) ==
LOC: ER 14:43
DX: S16.1XXA Strain of muscle, fascia and tendon at neck level, initial encounter (principal); M54.5 Low back pain; G89.29 Other chronic pain; I10 Essential (primary) hypertension; F17.200 Nicotine dependence, unspecified, uncomplicated; Z98.51 Tubal ligation status; V44.6XXA Car passenger injured in collision with heavy transport vehicle or bus in traffic accident, initial encounter; Y92.488 Other paved roadways as the place of occurrence of the external cause; Y93.89 Activity, other specified; Y99.8 Other external cause status
CPT/HCPCS: 72100; 81025; 96372; 99283; J2360; J7512

== ENCOUNTER 2021-04-08 07:00 | Emergency (ER) | payer MEDICAID, OTHER ==
[~2021-04-08] VITALS: Ht 165.1 cm; Wt 104.0 kg
[~2021-04-08 07:00] MED LIST changes: +CYCL10TA2 PO; +NAPR-514 PO; +PRED50TA PO
[2021-04-08] MEDS ORDERED: diphenhydrAMINE 50 MG/ML VIAL IVP ONE (08:15)
[2021-04-08] MEDS ORDERED: PROCHLORPERAZINE 10 MG/2 ML VIAL. IV ONE (08:15)
[2021-04-08] MEDS ORDERED: KETOROLAC 15 MG/ML VIAL. IVP ONE (08:15)
[2021-04-08] MEDS ORDERED: IV NORMAL SALINE 1000ML BAG 1,000 ML IV ONE (08:15)
--- NOTE | 2021-04-08 08:19 | ED.ADGEN ---
Past Medical History Past Medical History: Hypertension Additional Past Medical Histor: chronic left ankle pain, back pain, treated at pain center Past Surgical History: Tubal ligation, Other Additional Past Surgical Histo: orthopedic l ankle with hardware Smoking Status: Current Every Day Smoker Alcohol Use: Occasionally Drug Use: Marijuana General Adult EDM: Chief Complaint: HYPERTENSION HPI: HPI: Patient is a 35 year old female coming in for multiple complaints, main complaint is a headache with neck pain and right mid back pain for the past 3 days. Patient is ears been darker but denies any dysuria or hematuria. Denies any known fevers but has had chills. Denies any cough vomiting or diarrhea. Patient is not vaccinated against COVID-19. Patient also that her blood pressures been running high as she is on her medications for the past 2 weeks. Denies any chronic history of headaches. States her headache is frontal and pressure-like Review of Systems: Review of Systems: All other systems within normal limits except for as noted in the HPI Current Medications: Current Medications Medications (Trade) Dose Ordered Sig/Polly Start Time Stop Time Status Last Admin Dose Admin Diphenhydramine HCl (Benadryl) 50 mg 1X ONCE 04/08/21 08:15 04/08/21 08:19 DC 04/08/21 08:45 50 MG Fentanyl Citrate (Fentanyl 2ml Vial) 75 mcg 1X ONCE 04/08/21 11:15 04/08/21 11:16 DC Ketorolac Tromethamine (Toradol 15mg Vial) 15 mg 1X ONCE 04/08/21 08:15 04/08/21 08:19 DC 04/08/21 08:44 15 MG Prochlorperazine Edisylate (Compazine) 10 mg 1X ONCE 04/08/21 08:15 04/08/21 08:19 DC 04/08/21 08:44 10 MG Sodium Chloride 1,000 ml @ 1,000 mls/hr 1X ONCE 04/08/21 08:15 04/08/21 09:14 DC 04/08/21 08:44 1,000 MLS/HR Allergies: Allergies: Allergies Coded Allergies Type Severity Reaction Last Updated Verified No Known Drug Allergies 02/12/15 No Physical Exam: PE: Constitutional: Well developed, well nourished, no acute distress, non-toxic ap pearance. [] HENT: Normocephalic, atraumatic, bilateral external ears normal, nose normal. [] Eyes: PERRLA, conjunctiva normal, no discharge. [] Neck: No rigidity, supple, no stridor. [] Cardiovascular: Regular rate and rhythm, brisk cap refill [] Lungs & Thorax: Non labored symmetric respirations, no tachypnea or respiratory distress [] Abdomen: Soft, nondistended. Skin: Warm, dry, no erythema, no rash. [] Back: Unremarkable Extremities: No deformities, range of motion grossly intact, no lower extremity edema [] Neurologic: Alert and oriented X 3, no focal deficits noted. [] Psychologic: Affect normal, judgement normal, mood normal. [] Current Patient Data: Labs: Laboratory Tests Test 04/08/21 08:28 04/08/21 08:34 04/08/21 08:40 Urine Collection Type Void Urine Color Yellow Urine Clarity Clear Urine pH 5.5 (<5.0-8.0) Urine Specific [place] 1.010 (1.000-1.030) Urine Protein Negative mg/dL (NEG-TRACE) Urine Glucose (UA) Negative mg/dL (NEG) Urine Ketones (Stick) Negative mg/dL (NEG) Urine Blood Large (NEG) Urine Nitrite Negative (NEG) Urine Bilirubin Negative (NEG) Urine Urobilinogen Dipstick 0.2 mg/dL (0.2 mg/dL) Urine Leukocyte Esterase Negative (NEG) Urine RBC 20-40 /HPF (0-2) Urine WBC Occ /HPF (0-4) Urine Squamous Epithelial Cells Occ /LPF Urine Bacteria Few /HPF (0-FEW) Urine Mucus Slight /LPF White Blood Count 9.4 x10^3/uL (4.0-11.0) Red Blood Count 4.19 x10^6/uL (3.50-5.40) Hemoglobin 12.6 g/dL (12.0-15.5) Hematocrit 37.2 % (36.0-47.0) Mean Corpuscular Volume 89 fL (79-100) Mean Corpuscular Hemoglobin 30 pg (25-35) Mean Corpuscular Hemoglobin Concent 34 g/dL (31-37) Red Cell Distribution Width 16.9 % (11.5-14.5) H Platelet Count 355 x10^3/uL (140-400) Neutrophils (%) (Auto) 69 % (31-73) Lymphocytes (%) (Auto) 20 % (24-48) L Monocytes (%) (Auto) 6 % (0-9) Eosinophils (%) (Auto) 4 % (0-3) H Basophils (%) (Auto) 1 % (0-3) Neutrophils # (Auto) 6.5 x10^3/uL (1.8-7.7) Lymphocytes # (Auto) 1.9 x10^3/uL (1.0-4.8) Monocytes # (Auto) 0.5 x10^3/uL (0.0-1.1) Eosinophils # (Auto) 0.3 x10^3/uL (0.0-0.7) Basophils # (Auto) 0.1 x10^3/uL (0.0-0.2) Sodium Level 141 mmol/L (136-145) Potassium Level 4.6 mmol/L (3.5-5.1) Chloride Level 104 mmol/L (98-107) Carbon Dioxide Level 28 mmol/L (21-32) Anion Gap 9 (6-14) Blood Urea Nitrogen 7 mg/dL (7-20) Creatinine 0.7 mg/dL (0.6-1.0) Estimated GFR (Cockcroft-Gault) 113.9 BUN/Creatinine Ratio 10 (6-20) Glucose Level 97 mg/dL (70-99) Calcium Level 8.7 mg/dL (8.5-10.1) Total Bilirubin 0.1 mg/dL (0.2-1.0) L Aspartate Amino Transferase (AST) 21 U/L (15-37) Alanine Aminotransferase (ALT) 32 U/L (14-59) Alkaline Phosphatase 88 U/L (46-116) Total Protein 6.7 g/dL (6.4-8.2) Albumin 3.1 g/dL (3.4-5.0) L Albumin/Globulin Ratio 0.9 (1.0-1.7) L POC Urine HCG, Qualitative Hcg negative (Negative) Laboratory Tests 04/08/21 08:34 Laboratory Tests 04/08/21 08:34 Vital Signs: Vital Signs Date Time Temp Pulse Resp B/P (MAP) Pulse Ox O2 Delivery O2 Flow Rate FiO2 04/08/21 07:06 98.8 106 16 146/83 (105) 98 Room Air 98.8 EKG: EKG: [] Heart Score: C/O Chest Pain: No Risk Factors: Risk Factors: DM, Current or recent (<one month) smoker, HTN, HLP, family history of CAD, obesity. Risk Scores: Score 0 - 3: 2.5% MACE over next 6 weeks - Discharge Home Score 4 - 6: 20.3% MACE over next 6 weeks - Admit for Clinical Observation Score 7 - 10: 72.7% MACE over next 6 weeks - Early Invasive Strategies Radiology/Procedures: Radiology/Procedures: [] Course & Med Decision Making: Course & Med Decision Making Patient symptoms improved with headache cocktail. Dragon Disclaimer: Dragon Disclaimer: This electronic medical record was generated, in whole or in part, using a voice recognition dictation system. Departure Departure Impression: Primary Impression: Headache Additional Impression: Person under investigation for COVID-19 Disposition: HOME / SELF CARE / HOMELESS Condition: STABLE Referrals: ZOE TRINIDAD (PCP) Additional Instructions: You have been tested for or diagnosed with COVID-19. It is an infection caused by a new type of coronavirus. COVID-19 will cause cold-like or mild flu symptoms in most. It can cause more severe symptoms like problems breathing in some. There is no treatment for COVID-19. The body will clear the infection over time. Self-care will help to ease discomfort. Steps to Take: Self-Care Rest as needed. Healthy habits may help you feel better. Steps include: Choose healthy foods including fruits and vegetables. Drink water throughout the day. Get plenty of sleep each night. If you smoke, try to quit. It may ease breathing. Avoid alcohol. Keep Others Healthy The virus can spread to others. Droplets are released every time you sneeze or cough. The droplets can get into the mouth, nose, or eyes of people near you and lead to infection. To lower the chances of spreading COVID-19 to others: Stay at home until your doctor has said it is safe to leave. If you tested positive this will mean staying isolated until both of the following are true: At least 7 days have passed since the start of illness. You are free of fever for at least 72 hours without the use of medicine. During this time: - Avoid public areas, events, or transportation. Do not return to work or [employer] until your doctor has said it is safe to do so. - Call ahead if you need to go to a medical center. Let them know you may have COVID-19. It will help them guide you where to go. They may also ask you to wear a facemask when you come to the office. - If you call for emergency medical services, let them know you may have COVID- 19. While at home: - Try to avoid close contact with others. Stay about 6 feet away. - If possible, spend most of your time in a separate room from others. - Use a face mask if you will be in close contact with others such as sharing a room or vehicle. - Have someone wipe down common surfaces in the home. Use household combat systems engineer every day on areas like doorknobs, counters, or sinks. - Cough or sneeze into a tissue. Throw the tissue away right after use. If a tissue is not available, cough or sneeze into your elbow. - Wash your hands often. Wash them after sneezing or coughing. Use soap and water and wash for at least 20 seconds. Alcohol based hand ladle cleaner can be used if soap and water is not available. - Do not prepare food for others. Avoid sharing personal items like forks, spoons, or toothbrushes. - Avoid close contact with pets while you are sick. There is no evidence of the virus passing to pets. This is a safety step until more is known about this virus. Isolation can be frustrating. Social interaction can help. Keep in touch with friends and family through phone and tech options. You can still interact with others in your home, just keep a safe distance of about 6 feet. Follow-up: Your doctors office will check in with you to see if there are any changes in your health. You may be asked to keep track of symptoms to share with them. They will also let you know when you are clear to be in public again. Problems to Look Out For: Contact your doctor if your recovery is not going as you expect. Get emergency care if you have problems such as: - Trouble breathing - Nonstop chest pain or pressure - Changes in awareness, confusion, or problems waking - Lips or face have bluish color - Worsening of symptoms If you think you have an emergency, call for emergency medical services right away. As taken from [facility] Problem Qualifiers RODRIGEZ,RAQUEL L MD Apr 08, 2021 08:19
[2021-04-08 08:52] LABS: BASO # 0.1 x10^3/uL (0.0-0.2); BASO % 1 % (0-3); EOS # 0.3 x10^3/uL (0.0-0.7); EOS % 4 % (0-3); HEMATOCRIT 37.2 % (36.0-47.0); HEMOGLOBIN 12.6 g/dL (12.0-15.5); LYMPH # 1.9 x10^3/uL (1.0-4.8); LYMPH % 20 % (24-48); MEAN CORPUSCULAR HEMOGLOBIN 30 pg (25-35); MEAN CORPUSCULAR HGB CONC 34 g/dL (31-37); MEAN CORPUSCULAR VOLUME 89 fL (79-100); MONO # 0.5 x10^3/uL (0.0-1.1); MONO % 6 % (0-9); NEUT # 6.5 x10^3/uL (1.8-7.7); NEUT % 69 % (31-73); PLATELET COUNT 355 x10^3/uL (140-400); RED BLOOD COUNT 4.19 x10^6/uL (3.50-5.40); RED CELL DISTRIBUTION WIDTH 16.9 % (11.5-14.5); WHITE BLOOD COUNT 9.4 x10^3/uL (4.0-11.0)
[2021-04-08 08:55] LABS: BILIRUBIN,URINE NEGATIVE (NEG); CLARITY,URINE CLEAR; COLOR,URINE YELLOW; NITRITE,URINE NEGATIVE (NEG); PH,URINE 5.5 (<5.0-8.0); PROTEIN,URINE NEGATIVE (NEG-TRACE); UROBILINOGEN,URINE 0.2 mg/dL (0.2 mg/dL)
[2021-04-08 09:02] LABS: CALCIUM 8.7 mg/dL (8.5-10.1); CREATININE 0.7 mg/dL (0.6-1.0); GFR 113.9; POTASSIUM 4.6 mmol/L (3.5-5.1)
[2021-04-08 09:08] LABS: ALBUMIN 3.1 g/dL (3.4-5.0); ALBUMIN/GLOBULIN RATIO 0.9 (1.0-1.7); TOTAL BILIRUBIN 0.1 mg/dL (0.2-1.0); TOTAL PROTEIN 6.7 g/dL (6.4-8.2)
[2021-04-08 09:18] LABS: BACTERIA,URINE FEW /HPF (0-FEW); RBC,URINE 20-40 /HPF (0-2); WBC,URINE OCC /HPF (0-4)
[2021-04-08] MEDS ORDERED: fentaNYL PF VIAL 100 MCG/2 ML VIAL IVP ONE ×2 (11:15→11:30)
[2021-04-08 11:34] VITALS: BP 132/63
--- NOTE | 2021-04-09 14:39 | NUR ---
IP: Informed pt of negative covid test. pt verbalized understanding.
== END 2021-04-08 11:58 | disposition home or self-care (01) ==
LOC: ER 07:00
DX: R51.9 Headache, unspecified (principal); Z20.822 Contact with and (suspected) exposure to COVID-19; M54.2 Cervicalgia; M54.6 Pain in thoracic spine; I10 Essential (primary) hypertension; G89.29 Other chronic pain; F17.200 Nicotine dependence, unspecified, uncomplicated
CPT/HCPCS: 36415; 80053; 81001; 81025; 85025; 96361; 96374; 96375; 99284; J0780; J1200; J1885; J3010; J7030; U0003; U0005

== ENCOUNTER 2021-05-12 10:27 | Emergency (ER) | payer MEDICAID ==
[~2021-05-12] VITALS: Ht 165.1 cm; Wt 100.0 kg
[2021-05-12 10:57] LABS: BASO # 0.1 x10^3/uL (0.0-0.2); BASO % 1 % (0-3); EOS % 0 % (0-3); HEMATOCRIT 40.7 % (36.0-47.0); HEMOGLOBIN 13.6 g/dL (12.0-15.5); LYMPH # 1.7 x10^3/uL (1.0-4.8); LYMPH % 19 % (24-48); MEAN CORPUSCULAR HEMOGLOBIN 30 pg (25-35); MEAN CORPUSCULAR HGB CONC 33 g/dL (31-37); MEAN CORPUSCULAR VOLUME 90 fL (79-100); MONO # 0.4 x10^3/uL (0.0-1.1); MONO % 4 % (0-9); NEUT # 6.8 x10^3/uL (1.8-7.7); NEUT % 76 % (31-73); PLATELET COUNT 301 x10^3/uL (140-400); RED BLOOD COUNT 4.55 x10^6/uL (3.50-5.40); RED CELL DISTRIBUTION WIDTH 17.9 % (11.5-14.5)
[2021-05-12] MEDS ORDERED: IV NORMAL SALINE 1000ML BAG 1,000 ML IV ONE (11:00)
[2021-05-12] MEDS ORDERED: ONDANSETRON PF 4 MG/2 ML VIAL. IVP ONE ×2 (11:00→12:45)
[2021-05-12 11:12] LABS: ALBUMIN 3.4 g/dL (3.4-5.0); ALBUMIN/GLOBULIN RATIO 0.9 (1.0-1.7); CALCIUM 8.4 mg/dL (8.5-10.1); CREATININE 0.7 mg/dL (0.6-1.0); GFR 113.9; POTASSIUM 3.7 mmol/L (3.5-5.1); TOTAL BILIRUBIN 0.2 mg/dL (0.2-1.0); TOTAL PROTEIN 7.1 g/dL (6.4-8.2)
--- NOTE | 2021-05-12 11:19 | PHYS DOC ---
Past Medical History Past Medical History: Hypertension Additional Past Medical Histor: chronic left ankle pain, back pain, treated at pain center Past Surgical History: Tubal ligation, Other Additional Past Surgical Histo: orthopedic l ankle with hardware Smoking Status: Current Every Day Smoker Alcohol Use: Occasionally Drug Use: Marijuana General Adult EDM: Chief Complaint: NAUSEA/VOMITING/DIARRHEA HPI: HPI: Patient is a 35 year old female with history of alcoholism who presents with nausea, vomiting, intermittent epigastric discomfort. Started last night at approximately midnight. Drinks almost 1 pint of gin (which is typical), and ate pork grinds just prior to symptom onset. Has been sweating, having chills, and frequently vomiting since. States that with vomiting has epigastric pain. Does not radiate. Does have a separate pain in her upper back that she is unsure if it is connected. Denies any measured fevers. Denies chest pain, shortness of breath. No dysuria, urgency, frequency. No vaginal bleeding. Does report headache. Review of Systems: Review of Systems: Constitutional: Reports diaphoresis and chills. [] Eyes: Denies change in visual acuity. [] HENT: Denies nasal congestion or sore throat. [] Respiratory: Denies cough or shortness of breath. [] Cardiovascular: Denies chest pain or edema. [] GI: Reports nausea, vomiting, and intermittent epigastric abdominal pain. Denies bloody stools or diarrhea. [] : Denies dysuria. [] Musculoskeletal: Denies back pain or joint pain. [] Integument: Denies rash. [] Neurologic: Ports headache. Denies focal weakness or sensory changes. [] Endocrine: Denies polyuria or polydipsia. [] Lymphatic: Denies swollen glands. [] Psychiatric: Denies depression or anxiety. [] Heart Score: C/O Chest Pain: No Risk Factors: Risk Factors: DM, Current or recent (<one month) smoker, HTN, HLP, family history of CAD, obesity. Risk Scores: Score 0 - 3: 2.5% MACE over next 6 weeks - Discharge Home Score 4 - 6: 20.3% MACE over next 6 weeks - Admit for Clinical Observation Score 7 - 10: 72.7% MACE over next 6 weeks - Early Invasive Strategies Current Medications: Current Medications Medications (Trade) Dose Ordered Sig/Polly Start Time Stop Time Status Last Admin Dose Admin Lorazepam (Ativan Inj) 0.5 mg 1X ONCE 05/12/21 11:00 05/12/21 11:01 DC 05/12/21 10:57 0.5 MG Ondansetron HCl (Zofran) 4 mg 1X ONCE 05/12/21 11:00 05/12/21 11:01 DC 05/12/21 10:57 4 MG Sodium Chloride 1,000 ml @ 1,000 mls/hr 1X ONCE 05/12/21 11:00 05/12/21 11:59 05/12/21 10:57 1,000 MLS/HR Allergies: Allergies: Allergies Coded Allergies Type Severity Reaction Last Updated Verified No Known Drug Allergies 02/12/15 No Physical Exam: PE: Constitutional: Diaphoretic, appears uncomfortable. HENT: Normocephalic, atraumatic, Eyes: conjunctiva normal, no discharge. [] Neck: Normal range of motion, no tenderness, supple, no stridor. [] Cardiovascular:Heart rate regular rhythm, no murmur [] Lungs & Thorax: Bilateral breath sounds clear to auscultation [] Abdomen: States epigastric palpation increases nausea, but denies tenderness to deep palpation in all 4 quadrants. Skin: no erythema, no rash. [] Back: No tenderness, no CVA tenderness. [] Extremities: No tenderness, no cyanosis, no clubbing, ROM intact, no edema. [] Neurologic: Alert and oriented X 3, normal motor function, normal sensory function, no focal deficits noted. [] Psychologic: Affect normal, judgement normal, mood normal. [] Current Patient Data: Labs: Laboratory Tests Test 05/12/21 10:45 White Blood Count 9.0 x10^3/uL (4.0-11.0) Red Blood Count 4.55 x10^6/uL (3.50-5.40) Hemoglobin 13.6 g/dL (12.0-15.5) Hematocrit 40.7 % (36.0-47.0) Mean Corpuscular Volume 90 fL (79-100) Mean Corpuscular Hemoglobin 30 pg (25-35) Mean Corpuscular Hemoglobin Concent 33 g/dL (31-37) Red Cell Distribution Width 17.9 % (11.5-14.5) H Platelet Count 301 x10^3/uL (140-400) Neutrophils (%) (Auto) 76 % (31-73) H Lymphocytes (%) (Auto) 19 % (24-48) L Monocytes (%) (Auto) 4 % (0-9) Eosinophils (%) (Auto) 0 % (0-3) Basophils (%) (Auto) 1 % (0-3) Neutrophils # (Auto) 6.8 x10^3/uL (1.8-7.7) Lymphocytes # (Auto) 1.7 x10^3/uL (1.0-4.8) Monocytes # (Auto) 0.4 x10^3/uL (0.0-1.1) Eosinophils # (Auto) 0.0 x10^3/uL (0.0-0.7) Basophils # (Auto) 0.1 x10^3/uL (0.0-0.2) Laboratory Tests 05/12/21 10:45 EKG: EKG: [] Radiology/Procedures: Radiology/Procedures: [] Impression: [facility] [address] [place], [place] [id number] IMAGING REPORT Signed PATIENT: CARLOS MANUEL HAYES ACCOUNT: [id number] : 1985 LOCATION: ER AGE: 35 SEX: F EXAM STATUS: REG ER ORD. PHYSICIAN: SIRI DUQUE MD REASON: INTRACTABLE VOMITING PROCEDURE: CT ABD PELV W/ IV CONTRST ONLY EXAM: CT ABDOMEN/PELVIS WITH CONTRAST. HISTORY: Vomiting. TECHNIQUE: Computed tomography of the abdomen and pelvis was performed after the intravenous administration of iodinated contrast. One or more of the following individualized dose reduction techniques were utilized for this examination: 1. Automated exposure control. 2. Adjustment of the mA and/or kV according to patient size. 3. Use of iterative reconstruction technique. COMPARISON: 01/28/2020. FINDINGS: Lung windows through the visualized portions of the bases reveal no abnormality. Bone windows reveal no suspicious lesions. There are changes of bilateral fallopian tube closure. The colon is decompressed but there is mild diffuse colonic wall thickening. The appendix is not inflamed. There is no small bowel obstruction. The liver, gallbladder, pancreas, adrenal glands, spleen and kidneys are unr emarkable. There are no pathologically enlarged lymph nodes. IMPRESSION: 1. Diffuse mild colonic wall thickening. Correlate for colitis. Electronically signed by: Josee Helton MD (05/12/2021 4:04 PM) [facility] DICTATED and SIGNED BY: SIRI HELTON MD DATE: 05/12/21 [id number] [facility] [address] [place] [address] IMAGING REPORT Signed PATIENT: CARLOS MANUEL HAYES ACCOUNT: [id number] : 1985 LOCATION: ER AGE: 35 SEX: F EXAM STATUS: REG ER ORD. PHYSICIAN: SIRI DUQUE MD REASON: n/v, epigastric, lower chest pain PROCEDURE: CHEST AP ONLY EXAM: Chest, single view. HISTORY: Chest pain. COMPARISON: 01/13/2017 FINDINGS: A frontal view of the chest obtained. There is no infiltrate, pleural effusion or pneumothorax. The heart is normal in size. IMPRESSION: No acute pulmonary finding. Electronically signed by: Lilian Quinn MD (05/12/2021 11:32 AM) [id number] DICTATED and SIGNED BY: LILIAN QUINN MD DATE: 05/12/21 [id number] Course & Med Decision Making: Course & Med Decision Making Pertinent Labs and Imaging studies reviewed. (See chart for details) Patient a 35-year-old female with history of alcoholism who presents with nausea, vomiting, intermittent epigastric discomfort. On arrival is afebrile, hemodynamically stable. Appears uncomfortable and is retching. We will treat with antiemetics, Ativan, IV fluids to attempt to manage symptoms. DDx includes EtOH withdraw, gastroenteritis, gastroparesis, peptic ulcer disease, pancreatitis, esophagitis, Covid. Abdomen is nontender to palpation/nonsurgical. Will defer CT imaging at this time. CBC, CMP, lipase, UA, urine , Covid testing ordered. 1119 Labs reassuring. Symptoms may be due to gastritis or potentially early alcohol withdrawal, last drink approximately 10 PM. No history of EtOH withdrawal or seizure. Have been treating intermittently with Ativan for this possibility. Has had nausea despite recurrent doses of Ativan and Zofran. We will attempt IV Compazine, but may require admission for intractable nausea/vomiting. Due to the intractable nature of her nausea/vomiting CT of the abdomen pelvis was obtained and showed only evidence of potential mild diffuse colitis, which does not fit particularly well with her clinical picture. 1635 Patient is feeling much improved after Compazine. She is requesting discharge. Reviewed labs and imaging, and that I do not have an exact cause of her symptoms. Patient will return for new or worsening symptoms. I will give a short prescription for p.o. Compazine, reviewed most common side effects including akathisia, dystonia, tardive dyskinesia and have asked her to try Benadryl and discontinue medication if any of these effects occur. 1716 Mani Disclaimer: Mani Disclaimer: This electronic medical record was generated, in whole or in part, using a voice recognition dictation system. Departure Departure Impression: Primary Impression: Intractable nausea and vomiting Disposition: 01 HOME / SELF CARE / HOMELESS Condition: STABLE Referrals: ZOE TRINIDAD (PCP) Additional Instructions: Your labs and CT overall were very reassuring. We did not see an obvious cause for your symptoms. This could potentially be due to your alcohol use. Please consider slowly cutting down your alcohol use over time. This could also be caused by slow movement through your stomach. Or could potentially be a viral illness that will be self-limited and will pass on its own. Use Compazine only as instructed. Please discontinue the medication if you have any abnormal movements. If you do have abnormal muscle movements you can try taking Benadryl 25-50 mg to see if that helps. Please schedule follow-up appointment with your primary care doctor later this week. If your symptoms worsen, you develop pain, worsening nausea/vomiting, fever/chills, or other new/concerning symptoms please return to the emergency department for reevaluation Scripts Prochlorperazine Maleate (Compazine) 10 Mg Tablet 1 TAB PO PRN Q6HRS PRN for NAUSEA for 5 Days, #12 TAB 0 Refills Prov: SIRI DUQUE MD 05/12/21 SIRI DUQUE MD May 12, 2021 11:19
--- NOTE | 2021-05-12 11:34 | RAD ---
EXAM: Chest, single view. HISTORY: Chest pain. COMPARISON: 01/13/2017 FINDINGS: A frontal view of the chest obtained. There is no infiltrate, pleural effusion or pneumotho rax. The heart is normal in size. IMPRESSION: No acute pulmonary finding. Electronically signed by: Lilian Guzman MD (05/12/2021 11:32 AM) [id number]
[2021-05-12 14:50] LABS: BILIRUBIN,URINE NEGATIVE (NEG); CLARITY,URINE CLEAR; COLOR,URINE YELLOW; NITRITE,URINE NEGATIVE (NEG); PROTEIN,URINE NEGATIVE (NEG-TRACE); UROBILINOGEN,URINE 0.2 mg/dL (0.2 mg/dL)
[2021-05-12 15:02] LABS: BACTERIA,URINE MANY /HPF (0-FEW)
[2021-05-12 15:03] LABS: RBC,URINE 0 /HPF (0-2); WBC,URINE RARE /HPF (0-4)
[2021-05-12 15:08] VITALS: BP 162/100
[2021-05-12] MEDS ORDERED: IOHEXOL 300 MG/ML 100ML VIAL. IV ONE (15:45)
[2021-05-12] MEDS ORDERED: CONTRAST GIVEN. MC PRN (16:00)
--- NOTE | 2021-05-12 16:07 | RAD ---
EXAM: CT ABDOMEN/PELVIS WITH CONTRAST. HISTORY: Vomiting. TECHNIQUE: Computed tomography of the abdomen and pelvis was performed after the intravenous administ ration of iodinated contrast. One or more of the following individualized dose reduction techniques w ere utilized for this examination: 1. Automated exposure control. 2. Adjustment of the mA and/or kV according to patient size. 3. Use of iterative reconstruction technique. COMPARISON: 01/28/2020. FINDINGS: Lung windows through the visualized portions of the bases reveal no abnormality. Bone windo ws reveal no suspicious lesions. There are changes of bilateral fallopian tube closure. The colon is decompressed but there is mild di ffuse colonic wall thickening. The appendix is not inflamed. There is no small bowel obstruction. The liver, gallbladder, pancreas, adrenal glands, spleen and kidneys are unremarkable. There are no p athologically enlarged lymph nodes. IMPRESSION: 1. Diffuse mild colonic wall thickening. Correlate for colitis. Electronically signed by: Josee Helton MD (05/12/2021 4:04 PM) [facility]
[2021-05-12] MEDS ORDERED: PROCHLORPERAZINE 10 MG/2 ML VIAL. IV ONE (16:15)
[2021-05-12] MEDS ORDERED: PROC10TA57 PO (17:18)
--- NOTE | 2021-05-12 19:48 | EKG ---
[facility] [address] [place] [address] Test Date: 2021-05-12 Test Time: 12:13:36 Pat Name: CARLOS MANUEL HAYES Department: Room: Gender: F [employer]: : 1985 Requested By: SIRI DUQUE Order Number: [id number] Reading MD: Werner Marcial Measurements Intervals [place] Rate: 95 P: 19 DE: 146 QRS: 27 QRSD: 80 T: 31 QT: 372 QTc: 471 Interpretive Statements SINUS RHYTHM Electronically Signed On 05-13-2021 16:40:16 CDT by Werner Marcial
--- NOTE | 2021-05-13 18:11 | NUR ---
IP: Informed pt of negative covid test. Pt verbalized understanding.
== END 2021-05-12 17:48 | disposition home or self-care (01) ==
LOC: ER 10:27
DX: R11.2 Nausea with vomiting, unspecified (principal); R10.13 Epigastric pain; R61 Generalized hyperhidrosis; I10 Essential (primary) hypertension; G89.29 Other chronic pain; F17.200 Nicotine dependence, unspecified, uncomplicated; Z20.822 Contact with and (suspected) exposure to COVID-19; Z98.51 Tubal ligation status
CPT/HCPCS: 36415; 71045; 74177; 80053; 81001; 81025; 83690; 85025; 87426; 93005; 96361; 96374; 96375; 96376; 99285; J0780; J2060; J2405; J7030; Q9967; U0003; U0005